=== PATIENT | female | born 1965 | race African-American/Black ===

== ENCOUNTER 2018-03-28 17:16 | Emergency (ER) | payer BC, SELFPAY ==
--- NOTE | 2018-03-28 18:34 | RAD ---
RADIOGRAPH CHEST 2 VIEWS: HISTORY: A 52-year-old female with pleuritic chest pain. FINDINGS: There is no air space density, pulmonary edema, pleural effusion, pneumothorax, or cardiomegaly. IMPRESSION: No acute cardiopulmonary findings. jn [] POS: LASHONDA
== END 2018-03-28 19:51 | disposition home or self-care (01) ==
LOC: ERS 17:16
DX: J20.9 Acute bronchitis, unspecified (principal); R09.1 Pleurisy; I10 Essential (primary) hypertension; Z79.899 Other long term (current) drug therapy
CPT/HCPCS: 71046; 93005

== ENCOUNTER 2019-05-03 10:18 | Outpatient (CLI) | payer OTHER ==
--- NOTE | 2019-05-03 11:11 | MMO ---
Bilateral MAMMO Bilat Diag [facility]. CLINICAL HISTORY: Patient is 53 years old and is seen for diagnostic exam. The patient has the following family history of breast cancer: sister, at age 28. The patient has no personal history of cancer. VIEWS: The views performed were: bilateral craniocaudal with tomosynthesis; bilateral mediolateral oblique with tomosynthesis; and bilateral mediolateral with tomosynthesis. FILMS COMPARED: The present examination has been compared to prior imaging studies performed at [facility] on 06/23/2018, and at [facility] on 05/03/2019. This study has been interpreted with the assistance of computer-aided detection. MAMMOGRAM FINDINGS: There are scattered fibroglandular densities. There are no suspicious masses, suspicious calcifications, or new areas of architectural distortion. There are no mammographic or sonographic abnormalities to explain the patient's left breast pain. The patient is referred back to her clinician. Negative imaging findings should not preclude biopsy if clinical findings are suspicious. IMPRESSION: THERE IS NO MAMMOGRAPHIC EVIDENCE OF MALIGNANCY. THE RESULTS OF THIS EXAM WERE SENT TO THE PATIENT. ACR BI-RADS Category 1 - Negative MAMMOGRAPHY NOTE: 1. A negative mammogram report should not delay a biopsy if a dominant of clinically suspicious mass is present. 2. Approximately 10% to 15% of breast cancers are not detected by mammography. 3. Adenosis and dense breasts may obscure an underlying neoplasm. Reported by: DEEJAY MEEKS MD Electonically Signed: [id number]
--- NOTE | 2019-05-03 12:52 | ULT ---
LIMITED LEFT BREAST ULTRASOUND: Date: 05/03/2019 PROVIDED CLINICAL HISTORY: Left breast pain. FINDINGS: Limited sonographic interrogation was performed of the left breast from the 12-3 o'clock positions in the region of patient pain. The sonographic appearance of the breast tissue in this region is normal . IMPRESSION: BI-RADS Category 1 - Negative. Negative imaging findings should not preclude further evaluation of a clinically suspicious finding. The patient is referred back to her clinician. POS: OFF
== END 2019-05-03 10:19 | disposition home or self-care (01) ==
LOC: BICMAMMO 10:18
PROVIDERS: ATTEND Family Medicine
DX: N64.4 Mastodynia (principal)
CPT/HCPCS: 77066; G0279

== ENCOUNTER 2020-01-12 19:18 | Emergency (ER) | payer OTHER ==
[2020-01-12] MEDS ORDERED: Fentanyl 100 MCG/2 ML VIAL ONE (19:33)
--- NOTE | 2020-01-12 20:00 | RAD ---
XR Knee Rt 4 View STANDARD: 01/12/2020 7:32 PM CLINICAL INDICATION: Right knee pain with swelling COMPARISON: None. FINDINGS: Bones: No acute fracture is demonstrated. Joints: There are marginal osteophytes affecting all major arteries of the right knee. No joint capsu lar distention is evident.. Soft Tissue: No acute abnormality.. IMPRESSION: Moderate right knee osteoarthrosis. No acute fracture or subluxation..
== END 2020-01-12 20:14 | disposition home or self-care (01) ==
LOC: ERS 19:18
DX: M23.91 Unspecified internal derangement of right knee (principal); I10 Essential (primary) hypertension; F32.9 Major depressive disorder, single episode, unspecified; Z79.899 Other long term (current) drug therapy
CPT/HCPCS: 96372; J3010

== ENCOUNTER 2020-02-27 17:07 | Emergency (ER) | payer OTHER ==
[2020-02-27] MEDS ORDERED: Ketorolac Tromethamine 30 MG/ML VIAL ONE (17:45)
--- NOTE | 2020-02-27 17:59 | RAD ---
Exam:3 views right wrist HISTORY: Pain, x2 weeks. COMPARISON: None FINDINGS: Intercarpal and radiocarpal joint spaces are preserved. No fracture, cortical irregularity or periosteal reaction. There is minimal soft tissue swelling. IMPRESSION: 1. Minimal soft tissue swelling, without evidence of fracture.
== END 2020-02-27 18:25 | disposition home or self-care (01) ==
LOC: ERS 17:07
DX: M65.4 Radial styloid tenosynovitis [de Quervain] (principal); I10 Essential (primary) hypertension; Z79.899 Other long term (current) drug therapy
CPT/HCPCS: 96372; J1885

== ENCOUNTER 2020-05-08 12:20 | Outpatient (CLI) | payer OTHER ==
--- NOTE | 2020-05-08 14:01 | MMO ---
Bilateral MAMMO Bilat Screen [facility]. CLINICAL HISTORY: Patient is 54 years old and is seen for screening. The patient has the following family history of breast cancer: sister, at age 28. The patient has no personal history of cancer. VIEWS: The views performed were: bilateral craniocaudal with tomosynthesis and bilateral mediolateral oblique with tomosynthesis. FILMS COMPARED: The present examination has been compared to prior imaging studies performed at on 06/23/2018, and at [facility] on 05/03/2019. This study has been interpreted with the assistance of computer-aided detection. MAMMOGRAM FINDINGS: There are scattered fibroglandular densities. There are no suspicious masses, suspicious calcifications, or new areas of architectural distortion. IMPRESSION: THERE IS NO MAMMOGRAPHIC EVIDENCE OF MALIGNANCY. A ROUTINE FOLLOW-UP MAMMOGRAM IN 1 YEAR IS RECOMMENDED. THE RESULTS OF THIS EXAM WERE SENT TO THE PATIENT. ACR BI-RADS Category 1 - Negative MAMMOGRAPHY NOTE: 1. A negative mammogram report should not delay a biopsy if a dominant of clinically suspicious mass is present. 2. Approximately 10% to 15% of breast cancers are not detected by mammography. 3. Adenosis and dense breasts may obscure an underlying neoplasm. Reported by: ARCELIA GREEN MD Electonically Signed: [id number]
== END 2020-05-08 12:21 | disposition home or self-care (01) ==
LOC: BICMAMMO 12:20
PROVIDERS: ATTEND Family Medicine
DX: Z12.31 Encounter for screening mammogram for malignant neoplasm of breast (principal); Z80.3 Family history of malignant neoplasm of breast
CPT/HCPCS: 77063; 77067